=== PATIENT | female | born 1990 | race American Indian/Alaskan Native ===

== ENCOUNTER 2019-08-29 10:21 | Outpatient (CLI) | payer BC ==
--- NOTE | 2019-08-29 17:40 | Ultrasound Report ---
EXAMINATION: Bilateral Complete Breast Ultrasound, 08/29/2019 INDICATION: BIALTERAL BREAST MASSES COMPARISON: None. FINDINGS: Complete sonographic evlauation of all 4 quadrants and retroareolar region was performed. Right breast: Complete ultrasound of the right breast reveals benign duct ectasia, numerous benign si mple cysts, the largest in the 10:00 position located 7 cm from the nipple measuring up to 1.8 x 0.6 x 2.2 cm, and multiple similar-appearing oval circumscribed hypoechoic masses, the largest in the 1:0 0 position located 5 cm from the nipple measuring up to 1.6 x 1.8 x 0.6 cm. The solid masses are all parallel in orientation, and some demonstrate foci of internal vascularity. No dominant suspicious ma ss identified. Left breast: Complete ultrasound of the left breast reveals benign duct ectasia, several benign simpl e cysts, the largest in the 11:00 position located 3 cm from the nipple measuring up to 2.3 cm, and m ultiple similar-appearing oval circumscribed hypoechoic masses, the largest in the 1:00 position loca cheyanne 7 cm from the nipple measuring up to 2.0 x 0.8 x 2.1 cm. These are similar in appearance to the m asses described in the right breast. No dominant suspicious mass identified. IMPRESSION: 1. Bilateral benign duct ectasia, benign simple cysts, and oval circumscribed hypoechoic masses as de scribed above. 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 No dominant suspicious mass identified. Follow up recommendation: Unless otherwise clinically indicated, recommend patient return to routine screening mammography at age 39. BI-RADS Category 2: Benign. Signer Name: Peyton Warner MD Signed: 08/29/2019 5:36 PM Workstation Name: [id number]
== END 2019-08-29 10:22 | disposition home or self-care (01) ==
LOC: SPVWC 10:21
PROVIDERS: ATTEND Surgery
DX: N60.02 Solitary cyst of left breast (principal); N60.01 Solitary cyst of right breast; N60.42 Mammary duct ectasia of left breast; N60.41 Mammary duct ectasia of right breast

== ENCOUNTER 2020-07-03 14:22 | Outpatient (CLI) | payer BC ==
--- NOTE | 2020-07-03 16:35 | Ultrasound Report ---
ULTRASOUND-GUIDED CORE NEEDLE BIOPSY BREAST WITH CLIP PLACEMENT INDICATION: Palpable right breast mass at the 2:00 position. COMPARISON: 08/29/2019 FINDINGS: Informed consent was obtained. The mass within the right breast at the 2:00 position, 5 cm from the n ipple, was identified with ultrasound. The overlying skin was cleansed with chloro prep and local ane sthesia was obtained with a 1% lidocaine solution. Under ultrasound guidance a 14-gauge spring loaded core biopsy needle was advanced to the lesion. A total, of 4 core samples were obtained. A U-shaped biopsy marker was placed to alicia the site of the biopsy. Specimen samples were placed in formalin and sent to pathology for analysis. Patient tolerated the procedure well and no immediate complications were identified. A post procedure mammogram was not obtained as the patient reported she might be , however the biopsy marker appears appropriately positioned under ultrasound. IMPRESSION: Technically successful ultrasound guided core biopsy of right breast mass at the 2:00 position with a ccurate placement of a U-shaped biopsy marker. An addendum will be added to this report once pathology results are available. Signer Name: Dayo Stringer MD Signed: 07/03/2020 4:31 PM Workstation Name: [id number]
== END 2020-07-03 14:23 | disposition home or self-care (01) ==
LOC: SPVWC 14:22
PROVIDERS: ATTEND Surgery
DX: N63.12 Unspecified lump in the right breast, upper inner quadrant (principal); D24.1 Benign neoplasm of right breast; Z79.899 Other long term (current) drug therapy
CPT/HCPCS: 88305